=== PATIENT | male | born 1980 | race Caucasian/White ===

== ENCOUNTER 2018-06-24 11:11 | Emergency (ER) | payer MEDICAID ==
[~2018-06-24] VITALS: Ht 177.8 cm; Wt 77.1 kg
[~2018-06-24 11:11] MED LIST: GLIPIZIDE10 MG PO; METFORMIN1000 M1 PO
[2018-06-24 11:14] VITALS: BP 150/101; Ht 177.8 cm; Wt 77.1 kg
== END 2018-06-24 13:43 | disposition home or self-care (01) ==
LOC: ED 11:11
DX: S61.217A Laceration without foreign body of left little finger without damage to nail, initial encounter (principal); W27.8XXA Contact with other nonpowered hand tool, initial encounter; Y93.89 Activity, other specified; Y92.89 Other specified places as the place of occurrence of the external cause; Y99.8 Other external cause status
CPT/HCPCS: J2001; J3490

== ENCOUNTER 2018-07-02 18:23 | Emergency (ER) | payer MEDICAID ==
[~2018-07-02] VITALS: Ht 177.8 cm; Wt 77.1 kg
[2018-07-02 18:57] VITALS: Ht 177.8 cm; Wt 77.1 kg
[2018-07-02 20:31] VITALS: BP 130/74
== END 2018-07-02 20:31 | disposition home or self-care (01) ==
LOC: ED 18:23
DX: S61.216D Laceration without foreign body of right little finger without damage to nail, subsequent encounter (principal); I10 Essential (primary) hypertension; E11.9 Type 2 diabetes mellitus without complications; X58.XXXD Exposure to other specified factors, subsequent encounter

== ENCOUNTER 2019-02-15 06:06 | Inpatient (IN) | payer MEDICAID ==
[~2019-02-15] VITALS: Ht 175.3 cm; Wt 71.2 kg
--- NOTE | 2019-02-15 07:13 | NUR ---
PT PRESENTS TO ED WITH C/O VOMITING. PT STATES THAT HE HAS BEEN VOMITING SINCE THE , HE WAS SEEN AT [facility] AND IT HAS ONLY GOTTEN WORSE SINCE THEN. PT STATES TO EPIGASTRIC PAIN WHICH HE STATES COMES AND GOES. PT RATES PAIN AT 10/10 AT THIS TIME. PT ALSO NOTED HYPERTENSIVE, PT STATES THAT HE HAS NOT TAKEN HIS BLOOD PRESSURE MEDICATION X1 MONTH. PT BLOOD GLUCOSE 309 AT THIS TIME, PT IS AOX4, RESP EVEN AND UNLABORED, NO ACUTE DISTRESS NOTED. PT SIGNIFICANT OTHER AT BEDSIDE.
[2019-02-15 07:16] LABS: BASOPHIL % 0.4 % (0-2); PLATELET COUNT 264 x10^3mcL (130-400); RED CELL DISTRIBUTION WIDTH 13.1 % (11.5-14.5)
--- NOTE | 2019-02-15 07:18 | NUR ---
REPORT RECEIVED FROM ROSY VALDIVIA RN, I WILL BE RESUMING CARE OF PT AT THIS TIME.
--- NOTE | 2019-02-15 07:20 | NUR ---
UPON ENTERING RM, PT RESTING IN POSITION OF COMFORT, RESPIRATIONS EVEN AND UNLABORED, SKIN PINK DRY WARM, PT AFEBRILE, -NAUSEA/VOMITING AT THIS TIME, PT AWAITING MSE WITH MOM AT BEDSIDE
--- NOTE | 2019-02-15 07:23 | NUR ---
PT HAD EPISODE OF VOMITING, APPROX 25 CC BROWN LIQUID EMESIS, EMESIS BAG PROVIDED, MD BALES MADE AWARE WELL OF PT BP
--- NOTE | 2019-02-15 07:39 | NUR ---
PT REPORTS "STILL A LITTLE NAUSEOUS" -VOMITING AT THIS TIME, NSR ON CM.
--- NOTE | 2019-02-15 08:00 | NUR ---
PT HAD EPISODE OF APPROX 25 CC BROWN EMESIS, EMESIS BAG PROVIDED, MD BALES MADE AWARE
--- NOTE | 2019-02-15 08:17 | NUR ---
PT MEDICATED PER MD ORDER AND EMAR, PT CALM WITH -VOMITING AT THIS TIME. NSR ON CM, SKIN PINK DRY WARM, CALL LIGHT WITHIN REACH
--- NOTE | 2019-02-15 08:21 | NUR ---
PORTABLE CXR AT BEDSIDE
[2019-02-15 08:31] LABS: CALCIUM 9.4 mg/dL (8.5-10.1); CARBON DIOXIDE 27.6 mmol/L (21-32); CHLORIDE SERUM 97 mmol/L (98-107); CREATININE SERUM 1.1 mg/dL (0.7-1.3); GFR1 > 60 mL/min; GLUCOSE SERUM 337 mg/dL (74-106); POTASSIUM SERUM 4.3 mmol/L (3.5-5.1); SODIUM SERUM 133 mmol/L (136-145)
[2019-02-15 08:36] LABS: ALBUMIN 4.1 g/dL (3.4-5.0); ALKALINE PHOSPHATASE 80 U/L (46-116); ALT/SGPT 26 U/L (16-63); AST/SGOT 10 U/L (15-37); BILIRUBIN TOTAL 0.53 mg/dL (0.20-1.00); LIPASE 361 IU/L (73-393)
--- NOTE | 2019-02-15 09:15 | NUR ---
PT DENIES PAIN AT THIS TIME, PT STS "STILL A LITTLE NAUSEUS THOUGH" VSS, NSR ON CM, PT IN NAD, RESTING IN POSITION OF COMFORT, MD BALES MADE AWARE
--- NOTE | 2019-02-15 09:30 | NUR ---
PT MEDICATED PER MD ORDER AND EMAR, WILL CONTINUE TO MONITOR
--- NOTE | 2019-02-15 09:47 | NUR ---
REPORT GIVEN TO BENJI PUTNAM, MED SURG
--- NOTE | 2019-02-15 09:56 | NUR ---
PT DENIES NAUSEA AT THIS TIME
--- NOTE | 2019-02-15 10:03 | NUR ---
RECEIVED PT FROM ER W/ DIAGNOSIS OF INTRACTABLE VOMITING. BEGAN HAVING VOMITING 02/12/19 X 1 DAY AND TODAY. DIARRHEA 02/12/19. HX HTN DM. DID NOT TAKE BP MEDS THIS AM PT WAS VOMITING. ALLERGY:NORCO. SMOKED 1 YEAR APPROX 20 YEARS AGO. INDEPENDENT W ADL'S. NO PHYSICAL LIMITATIONS. SAYS HE HAS LOST APPROX 10 POUNDS RECENTLY. FEELING MUCH BETTER NOW SINCE RECEIVING MEDS IN ER. DENIES ANY PAIN. MED SURG PT. CROATIAN SPEAKING, UNDERSTANDS AND SPEAKS HEBREW. ORIENTED TO ROOM AND CALL LIGHT . RESTING COMFORTABLY WITH SIGNIFICANT OTHER STACEY AT BEDSIDE.
[2019-02-15 11:33] VITALS: BP 133/78
[2019-02-15 16:57] VITALS: BP 113/65
[2019-02-15 17:33] LABS: AMPHETAMINE QUAL UR NONE DETECTED (See below)
--- NOTE | 2019-02-15 19:24 | NUR ---
RESTING COMFORTABLY BREATHING FREELY ON RA. FAMILY CHRISTIANNE BEDSIDE MOST OF DAY. KUB TAKEN. NON SPECIFIC BOWEL GAS PATTERN. NPO FOR US ABD. NPO AFTER MN FOR EGD TOMORROW. CONSENTS SIGNED. NO C/O PAINOR NAUSEA. INDEPENDENT W ADL'S. CALL LIGHT WITHIN REACH.
--- NOTE | 2019-02-15 19:30 | NUR ---
PT RECEIVED A/O X4, ABLE TO MAKE NEEDS KNOWN. MED-SURG, DENIES ANY CP/PRESSURE. PULSES PALPABLE, NO EDEMA PRESENT. BREATHING IS EVEN AND UNLABORED ON RA, NO RESP DISTRESS OBSERVED. ABD SOFT AND NONDISTENDED, DENIES N/V AT THIS TIME. VOIDS FREELY, BRP. AMBULATORY WITH STEADY GAIT. DISCOLORATION AND SCABS TO AGUILA SHINS, ANITA. PT DENIES HAVING ANY PAIN AT THIS TIME. PT NPO FOR US ABD, PER AM NURSE, [employer] TO COME BETWEEN [phone], WILL FOLLOW UP WITH TECH. PT WILL BE NPO AFTER MIDNIGHT FOR EGD PROCEDURE. IVF INFUSING WELL TO RFA, PATENT AND INTAC, SITE FREE FROM REDNESS OR SWELLING. NO ACUTE DISTRESS NOTED. BED IN LOWEST SETTING, SIDE RAILS UP X2, CALL LIGHT WITHIN REACH. WILL CONT TO MONITOR.
[2019-02-15 19:38] VITALS: BP 132/71
--- NOTE | 2019-02-15 23:40 | NUR ---
RECEIVED CALL BACK FROM [employer]. PER TECH, UNABLE TO DO US ABD MATHEWIGHT AND WILL MAKE NOTE FOR PT TO BE FIRST US IN THE AM.
--- NOTE | 2019-02-16 00:35 | NUR ---
PT AWAKE AND ALERT, SPOUSE AT BEDSIDE. BREATHING IS EVEN AND UNLABORED, NO RESP DISTRESS NOTED. PT DENIES HAVING ANY PAIN AT THIS TIME. IVF INFUSING WELL, SITE WNL. PT NPO FOR PROCEDURE IN AM, NPO SIGN POSTED. NO ACUTE DISTRESS NOTED. CALL LIGHT WITHIN REACH. WILL CONT TO MONITOR.
[2019-02-16 05:20] VITALS: BP 158/89
--- NOTE | 2019-02-16 06:07 | NUR ---
PT SLEPT WELL THROUGHOUT THE EVENING. BREATHING IS EVEN AND UNLABORED, NO RESP DISTRESS NOTED. PT DENIES HAVING ANY PAIN AT THIS TIME. PT REMAINS NPO FOR EGD SCHEDULED AT 0800. SPOUSE AT BEDSIDE. IVF INFUSING WELL, SITE WNL. NO ACUTE CHANGES ENCOUNTERED DURING SHIFT. ALL NEEDS MET AND ANTICIPATED. WILL ENDORSE CARE TO AM NURSE.
[2019-02-16 06:56] LABS: BASOPHIL % 0.5 % (0-2); PLATELET COUNT 251 x10^3mcL (130-400); RED CELL DISTRIBUTION WIDTH 13.4 % (11.5-14.5)
--- NOTE | 2019-02-16 07:17 | NUR ---
PT IN NO ACUTE DISTRESS. CONTINUITY OF CARE ENDORSED TO AM NURSE. ALL QUESTIONS AND CONCERNS ADDRESSED.
--- NOTE | 2019-02-16 07:29 | NUR ---
REPORT GIVEN TO JG FROM GI. ALL QUESTIONS AND CONCERNS ADDRESSED.
[2019-02-16 07:37] LABS: CALCIUM 8.8 mg/dL (8.5-10.1); CARBON DIOXIDE 28.6 mmol/L (21-32); CHLORIDE SERUM 102 mmol/L (98-107); GFR1 > 60 mL/min; GLUCOSE SERUM 292 mg/dL (74-106); MAGNESIUM 2.1 mg/dL (1.8-2.4); POTASSIUM SERUM 4.7 mmol/L (3.5-5.1); SODIUM SERUM 136 mmol/L (136-145)
--- NOTE | 2019-02-16 07:40 | NUR ---
RECEIVED PT FROM [employer] [facility] RN. A/OX4. MED SURG. DENIES CHEST PAIN/PRESSURE. RESPIRATIONS EQUAL AND UNLABORED ON RA. DENIES SOB. PT DENIES ANY ABDOMINAL PAIN AT THIS TIME. PT DENIES ANY N/V. ABDOMEN SOFT AND NONTENDER X4 QUAD. PT NPO SINCE MIDNIGHT FOR EGD. PT AWARE OF PROCEDURE. IV TO RAC PATENT AND INFUSING, FLUSHED WELL, NO REDNESS OR SWELLING NOTED. WILL CONTINUE TO MONITOR. CALL LIGHT IN REACH. BED IN LOWEST POSITION.
[2019-02-16 08:24] VITALS: BP 177/101
--- NOTE | 2019-02-16 08:30 | NUR ---
PT SITTING UP IN BED. NO ACUTE RESP DISTRESS NOTED ON RA. PT DENIES ANY PAIN AT THIS TIME. BLOOD PRESSURE CHECKED WAS 177/101, HR 80. MANOHAR BEAR MADE AWARE, PT GIVEN CLONIDINE PO WITH SMALL SIPS OF WATER. IV FLUSHED WELL TO RAC. NO REDNESS OR SWELLING NOTED. PT STATES " I USED TO TAKE SOMETHING FOR MY BLOOD PRESSURE. I RAN OUT OF MEDICATION." WILL CONTINUE TO MONITOR. CALL LIGHT IN REACH. BED IN LOWEST POSITION.
--- NOTE | 2019-02-16 09:50 | NUR ---
RECEIVED PT BACK FROM GI LAB. NO ACUTE RESP DISTRESS NOTED ON RA. PT DENIES ANY PAIN AT THIS TIME. PT DENIES ANY N/V. PT ASKING TO EAT, PT GIVEN SNACKS. IV FLUSHED WELL TO RAC. NO REDNESS OR SWELLING NOTED. WILL CONTINUE TO MONITOR. CALL LIGHT IN REACH. BED IN LOWEST POSITION.
--- NOTE | 2019-02-16 11:46 | NUR ---
PT SITTING UP IN BED. NO ACUTE RESP DISTRESS NOTED ON RA. PT DENIES ANY PAIN AT THIS TIME. PT DENIES ANY N/V. BLOOD SUGAR CHECKED WAS 287. GIVEN 9 UNITS OF REGULAR INSULIN PER SLIDING SCALE. WILL CONTINUE TO MONITOR. CALL LIGHT IN REACH. BED IN LOWEST POSITION.
[2019-02-16 12:02] VITALS: BP 158/90
--- NOTE | 2019-02-16 12:53 | NUR ---
CALLED PT PHARMACY [facility] IN [place] REGARDING PT MEDICATION REC. [facility] HAS NO LIST OF BLOOD PRESSURE MEDICATIONS PRESCRIBED FOR PT. PT REPORTS PREVIOUS GOING TO [facility] IN [place]. CALLED [facility], PER PHARMACIST AT [facility] PT HAS NOT BEEN TO PHARMACY SINCE 2011.
[2019-02-16 16:32] VITALS: BP 157/90
--- NOTE | 2019-02-16 16:41 | NUR ---
PT SITTING UP AT BEDSIDE. NO ACUTE RESP DISTRESS NOTED ON RA. PT DENIES ANY ABDOMINAL PAIN AT THIS TIME. PT DENIES ANY N/V. BLOOD SUGAR CHECKED WAS 202. GIVEN 6 UNITS OF REGULAR INSULIN PER SLIDING SCALE. FAMILY AT BEDSIDE. WILL CONTINUE TO MONITOR. CALL LIGHT IN REACH. BED IN LOWEST POSITION.
--- NOTE | 2019-02-16 19:35 | NUR ---
RECEIVED REPORT FROM DAY SHIFT RN. PT RESTING IN BED COMFORTABLY. BREATHING EVEN AND UNLABORED ON ROOM AIR. ABD SOFT/NONTENDER. BOWEL SOUNDS ACTIVE X 4 QUADS. NO C/O N/V/ABD PAIN AT THIS TIME. IV TO RAC, SALINE LOCKED, INTACT. SAFETY MEASURES IN PLACE. BED IN LOWEST POSITION. SIDE RAILS UP X2. INSTRUCTED PT TO USE THE CALL LIGHT FOR ASSISTANCE. CALL LIGHT WITHIN REACH. FAMILY AT BEDSIDE.
[2019-02-16 20:26] VITALS: BP 140/85
[2019-02-16 21:58] VITALS: Ht 175.3 cm; Wt 71.2 kg
--- NOTE | 2019-02-17 03:17 | NUR ---
PT RESTING WITH EYES CLOSED. NO FACIAL GRIMACING. CALL LIGHT WITHIN REACH. WILL CONTINUE TO MONITOR. SPOUSE AT BEDSIDE.
[2019-02-17 06:15] VITALS: BP 187/96
[2019-02-17 06:34] LABS: BASOPHIL % 0.7 % (0-2); PLATELET COUNT 254 x10^3mcL (130-400); RED CELL DISTRIBUTION WIDTH 13.3 % (11.5-14.5)
--- NOTE | 2019-02-17 06:49 | NUR ---
BP 187/96 HR 73. CATAPRES GIVEN PER ORDER.
--- NOTE | 2019-02-17 07:00 | NUR ---
PT RESTED IN LONG INTERVALS DURING SHIFT. NO SOB NOTED ON ROOM AIR. NO C/O CHEST PAIN. NO DISTRESS NOTED. SAFETY MEASURES MAINTAINED. CALL LIGHT WITHIN REACH. WILL ENDORSE CARE TO ONCOMING RN.
[2019-02-17 07:01] LABS: CALCIUM 9.2 mg/dL (8.5-10.1); CARBON DIOXIDE 29.3 mmol/L (21-32); CHLORIDE SERUM 100 mmol/L (98-107); CREATININE SERUM 0.9 mg/dL (0.7-1.3); GFR1 > 60 mL/min; GLUCOSE SERUM 206 mg/dL (74-106); POTASSIUM SERUM 5.2 mmol/L (3.5-5.1); SODIUM SERUM 133 mmol/L (136-145)
--- NOTE | 2019-02-17 08:00 | NUR ---
PATIENT RECEIVED IN BED RESTING. NO SIGNS OF DISTRESS. WILL CONTINUE TO MONITOR.
[2019-02-17 09:34] VITALS: BP 130/81
[2019-02-17 11:40] VITALS: BP 136/74
--- NOTE | 2019-02-17 12:30 | NUR ---
Discharge education provided for patient in Bahamian. Patient understands and does not have any further questions. Prescriptions explained that they were sent to pharmacy. Patient to make appointment with primary physician within 1-2 weeks. Offered patient wheelchair. Patient said he was okay to walk. No signs of distress noted. Patient safely escorted out of hospital to his personal vehicle.
== END 2019-02-17 12:30 | disposition home or self-care (01) | DRG 48 ==
LOC: ED 06:06 → MU 09:32
PROVIDERS: Emergency Medicine; Internal Medicine Gastroenterology; ADMIT General Practice
PROC: 0DB78ZX Excision of Stomach, Pylorus, Via Natural or Artificial Opening Endoscopic, Diagnostic (ICD-10-PCS; principal; 2019-02-16 09:00)
DX: E11.43 Type 2 diabetes mellitus with diabetic autonomic (poly)neuropathy (principal); D68.69 Other thrombophilia; K31.84 Gastroparesis; I10 Essential (primary) hypertension; K21.9 Gastro-esophageal reflux disease without esophagitis; Z79.84 Long term (current) use of oral hypoglycemic drugs; Z91.14 Patient's other noncompliance with medication regimen
CPT/HCPCS: 43235; 82962; 90658; 90732; C9113; G0378; J0780; J1200; J1610; J1815; J2250; J2270; J2310; J2405; J3010; J3490; J7030; Q0092

== ENCOUNTER 2019-06-19 19:13 | Emergency (ER) | payer MEDICAID ==
[~2019-06-19] VITALS: Ht 177.8 cm; Wt 72.6 kg
[2019-06-19 19:19] VITALS: Ht 177.8 cm; Wt 72.6 kg
[2019-06-19 20:01] LABS: PLATELET COUNT 215 x10^3mcL (130-400); RED CELL DISTRIBUTION WIDTH 13.1 % (11.5-14.5)
[2019-06-19 20:43] LABS: CALCIUM 9.9 mg/dL (8.5-10.1); CARBON DIOXIDE 24.9 mmol/L (21-32); CHLORIDE SERUM 101 mmol/L (98-107); CREATININE SERUM 1.1 mg/dL (0.7-1.3); GFR1 > 60 mL/min; GLUCOSE SERUM 388 mg/dL (74-106); POTASSIUM SERUM 4.8 mmol/L (3.5-5.1); SODIUM SERUM 139 mmol/L (136-145)
[2019-06-19 20:46] LABS: BAND NEUTROPHIL 2 % (0-10); MONOCYTE 6 % (0-7); PLATELET MORPHOLOGY PLATELETS NORMAL; SEGMENTED NEUTROPHILS 79 % (37-75); rbc morphology (normal/abnorm) NORMAL (NORMAL)
[2019-06-19 20:47] LABS: ALBUMIN 4.3 g/dL (3.4-5.0); ALKALINE PHOSPHATASE 69 U/L (46-116); ALT/SGPT 26 U/L (16-63); AST/SGOT 17 U/L (15-37); BILIRUBIN TOTAL 0.7 mg/dL (0.20-1.00); LIPASE 568 IU/L (73-393); TOTAL PROTEIN, SERUM 7.6 g/dL (6.4-8.2)
[2019-06-19 20:48] LABS: AMYLASE 129 U/L (25-115)
[2019-06-19 22:15] VITALS: BP 163/87
== END 2019-06-19 22:15 | disposition home or self-care (01) ==
LOC: ED 19:13
PROVIDERS: Emergency Medicine
DX: K21.9 Gastro-esophageal reflux disease without esophagitis (principal); K86.0 Alcohol-induced chronic pancreatitis; Z88.5 Allergy status to narcotic agent
CPT/HCPCS: C9113; J2405; J2765; J7030

== ENCOUNTER 2020-03-18 01:13 | Emergency (ER) | payer MEDICAID ==
[~2020-03-18] VITALS: Ht 177.8 cm; Wt 74.8 kg
[2020-03-18 01:25] VITALS: Ht 177.8 cm; Wt 74.8 kg
[2020-03-18 03:36] LABS: BASOPHIL % 0.6 % (0.2-1.5)
[2020-03-18 03:38] LABS: PLATELET COUNT 273 x10^3mcL (152-348); RED CELL DISTRIBUTION WIDTH 13.2 % (12.1-16.2)
[2020-03-18 03:58] LABS: ALBUMIN 4.4 g/dL (3.4-5.0); BILIRUBIN TOTAL 0.7 mg/dL (0.20-1.00); CALCIUM 9.2 mg/dL (8.5-10.1); CREATININE SERUM 1.5 mg/dL (0.7-1.3); POTASSIUM SERUM 4.7 mmol/L (3.5-5.1)
[2020-03-18 07:25] VITALS: BP 157/79
== END 2020-03-18 07:46 | disposition home or self-care (01) ==
LOC: ED 01:13
PROVIDERS: Emergency Medicine
DX: E11.65 Type 2 diabetes mellitus with hyperglycemia (principal); R11.2 Nausea with vomiting, unspecified; R10.10 Upper abdominal pain, unspecified; I10 Essential (primary) hypertension; Z88.5 Allergy status to narcotic agent
CPT/HCPCS: 36600; 82962; J1815; J2405; J7030